=== PATIENT | female | born 1975 | race Native Hawaiian/Other Pacific Islander ===

== ENCOUNTER 2016-07-12 10:41 | Outpatient (CLI) | payer OTHER | END 2016-07-12 10:42 | disposition home or self-care (01) | DX: G47.33 Obstructive sleep apnea (adult) (pediatric) (principal) ==

== ENCOUNTER 2017-09-06 10:42 | Outpatient (CLI) | payer OTHER | END 2017-09-06 10:43 | disposition home or self-care (01) | LOC: SC 10:42 | PROVIDERS: ATTEND Nurse Practitioner Family | DX: G47.33 Obstructive sleep apnea (adult) (pediatric) (principal) | CPT/HCPCS: 99212; 99213 ==

== ENCOUNTER 2018-09-05 13:26 | Outpatient (CLI) | payer OTHER | END 2018-09-05 13:27 | disposition home or self-care (01) | LOC: SC 13:26 | PROVIDERS: ATTEND Nurse Practitioner Family | DX: G47.33 Obstructive sleep apnea (adult) (pediatric) (principal) | CPT/HCPCS: 99212; 99214 ==

== ENCOUNTER 2019-10-01 15:29 | Outpatient (CLI) | payer OTHER ==
--- NOTE | 2019-10-01 15:37 | SLEEP CARE CONSULTATION ---
Information from patient questionnaire entered by Britney Garcia. I have reviewed and concur with the information entered by Britney Garcia. This document represents the service I personally performed and the decisions made by me, Ranulfo Dugan MD, [facility]. History of Present Illness Service Date and Time: 10/01/2019 1529 Previous diagnosis: Severe, Obstructive Sleep Apnea-Hypopnea Syndrome AHI: 40 Reason for follow up: annual Equipment type: CPAP Equipment obtained from: [facility] additional information: To minimize the risk of COVID-19 exposure, the patient has requested and consented to this video telemedicine visit. The patient also agrees to having her insurance billed. HPI: Ms. Guo was called today to follow up on the nasal CPAP therapy. She was diagnosed to have severe obstructive sleep apnea-hypopnea syndrome. The patient wears with nasal pillows. [employer] is her durable medical supplier. She reports using the device nightly and all through the night. The compliance data show usage in 172 out of the past 180 nights, averaging 6.1 hours a night. The > 4 hour compliance rate for the past 180 days is 90%. She complained of no particular problem with the device such as soreness on the face, dry nose, epistaxis, nasal congestion or headache. She thinks that the pressure of 7 cmH2 O is comfortable. On the CPAP therapy she notices improvement in her sleep quality, and that she wakes up feeling fresher in the morning and more awake/alert during the day. The average residual AHI is 0.6; and average time in large leak per day is 18 seconds. CPAP Compliance Data - Data Reviewed with Patient Average duration of nightly device use: 6H 9M Compliance rate %: 90 Current pressure setting (cmH2O): 7 Humidity settin Heated hose settin Average residual AHI: 0.6 Average large leak: 18S Subjective Initial [place] Sleepiness Scale score: 13 Allergies and Home Medications Drug allergies reviewed: Yes Home medication list reviewed: Yes Review of Systems Review of systems same as previous: Yes Physical Exam Height: 5 ft 2 in Impression and Plan IMPRESSION: 1. Obstructive Sleep Apnea-Hypopnea Syndrome, severe (AHI was 40) with the patient doing well on nasal CPAP therapy. She has excellent compliance and significant clinical improvement. The current pressure appears effective and comfortable. Her nasal pillows fit well. Overall, she is very satisfied with treatment and plans to continue with it long-term. Because the CPAP is now older than the useful life of 5 years, I will order the patient a new one and make it an autoCPAP set between 5 and 8 cmH2O. PLAN: 1. Prescription made for an autoCPAP, heated humidifier, and related supplies. 2. Try to lose weight 3. Try other nasal pillows and nasal cushions. 4. Return for follow up after one month on the new machine. Visit Type: Telehealth Video Video Type: TURN8 Patient Location: Home Location of Provider: Home Patient agrees and consents to this telehealth visit type: Yes Time Spent with Patient (minutes): 15 Provider Statement: I spent 100% of the Telehealth Video Call with the patient with greater than 50% spent counseling the patient and coordination of care.
== END 2019-10-01 15:30 | disposition home or self-care (01) ==
LOC: SC 15:29
PROVIDERS: ATTEND Internal Medicine Pulmonary Disease
DX: G47.33 Obstructive sleep apnea (adult) (pediatric) (principal)

== ENCOUNTER 2019-12-18 11:09 | Outpatient (CLI) | payer OTHER ==
--- NOTE | 2019-12-18 11:04 | SLEEP CARE CONSULTATION ---
Information from patient questionnaire entered by Britney Garcia. I have reviewed and concur with the information entered by Britney Garcia. This document represents the service I personally performed and the decisions made by me, Tegan Sherwood, RN, MSN, [employer]. History of Present Illness Service Date and Time: 12/18/2019 1030 Previous diagnosis: Severe, Obstructive Sleep Apnea-Hypopnea Syndrome AHI: 40 Reason for follow up: first compliance after device update Equipment type: CPAP Equipment obtained from: [facility] (getting supplies as needed) Mask style: Nasal (Dreamwear) Backup mask available: Yes (old mask) Last cushion change: 2 weeks ago Prior sleep studies: Yes Year and Where: [facility] 2014 Type of Sleep Study: Polysomnography CPAP Compliance Data - Data Reviewed with Patient Average duration of nightly device use: 5h 29m Compliance rate %: 93 Current pressure setting (cmH2O): 5-8 Average residual AHI: 0.3 (7.9cmH20 95th ) Average large leak: zero Subjective Patient concerns: reports: nasal congestion (past but not currently). denies: aerophagia, mask discomfort, air blowing in eyes, mask leak noise, condensation in mask/hose, dry mouth, nose, throat, epistaxis Observed to snore while using device: No Current pressure setting perceived as: comfortable On therapy, patient: reports: sleeping better, awakening more refreshed, being m ore awake and alert during the day, more rested overall. denies: drowsiness while driving Initial [place] Sleepiness Scale score: 13 Allergies and Home Medications Known drug allergies: No Home medication list reviewed: No (no changes ) Review of Systems Review of systems same as previous: Yes Physical Exam Height: 5 ft 2 in Weight: 169 lb Weight change since last visit: lost 16 pounds Body Mass Index: 30.9 BMI Classification: Obese Impression and Plan 1. Obstructive Sleep Apnea-Hypopnea Syndrome, severe, with good treatment compliance and good apnea control. On CPAP therapy, the patient has better sleep quality and is more rested overall.Since she is averaging 5.5 hours, I discussed most people require 7-9 hours of sleep and less than 5-6 hours can increase health risks. Thus she is advised to strive a minimum 7 hours. Patient has lost weight. Currently patients BMI is 30.9 obesity class . Obesity increases the risk of apnea, CPAP pressure requirements and overall health risks especially cardiovascular and diabetes. Thus patient is advised to continue to lose weight. Weight loss can be done with reducing portion size, reducing refined foods and balancing content with vegetables, fruit and protein. In addition tracking food intake will allow awareness of how to modify diet to achieve weight loss goals. Also eating more slowly will allow more awareness of food intake and enjoyment of food while assisting patient to modify intake at each meal. A diet consultation can be helpful in achieving optimal weight loss goals. The BMI chart was reviewed. The patient would like to reduce to 20 pounds. Patient encouraged to discuss their weight loss goals with their PCP and consider a referral to a market research specialist. The patient's CPAP pressure range should accommodate some weight loss. Symptoms to report for additional pressure adjustment discussed.Patient's apnea severity and rationale for treatment to reduce apnea, improve sleep quality and reduce cardiovascular and cerebrovascular events was reviewed. I also reviewed the benefit of consistent device use of CPAP for hypertension. * Continue auto CPAP pressure at 5-8 cmH2O * Strive for more sleep * Notify me if snoring with mask or feeling that the pressure is too much or too little * Continue to lose weight * Call this office if any problems using CPAP * Return for follow up in 1 year , or sooner if concerns arise Visit Type: In Office Patient Location: Home Location of Provider: Office Patient agrees and consents to this telehealth visit type: Yes Patient agrees to have their insurance billed: Yes Time Spent with Patient (minutes): 15 Provider Statement: I spent 100% of the Face to Face Visit with the patient with greater than 50% spent counseling the patient and coordination of care.
== END 2019-12-18 11:10 | disposition home or self-care (01) ==
LOC: SC 11:09
PROVIDERS: ATTEND Nurse Practitioner Family
DX: G47.33 Obstructive sleep apnea (adult) (pediatric) (principal); E66.9 Obesity, unspecified; Z68.30 Body mass index [BMI] 30.0-30.9, adult

== ENCOUNTER 2020-01-15 08:32 | Outpatient (CLI) | payer OTHER ==
--- NOTE | 2020-01-16 09:23 | Mammography Report ---
BILATERAL DIGITAL SCREENING MAMMOGRAM 3D/2D: 01/15/2020 CLINICAL: Routine screening. Comparison is made to exams dated: 01/09/2017 mammogram, 12/19/2016 mammogram, 12/17/2015 mammogram, and 12/10/2014 mammogram - [facility]. The tissue of both breasts is heterogeneously dense . This may lower the sensitivity of mammography. There is a biopsy clip in the right breast. No significant masses, calcifications, or other findings are seen in either breast. There has been no significant interval change. IMPRESSION: NEGATIVE There is no mammographic evidence of malignancy. A 1 year screening mammogram is recommended. This exam was interpreted at Station ID: [id number]. NOTE: For mammograms, a report in lay terms will be sent to the patient. Approximately 15% of breast malignancies will not be visualized mammographically. In the management of a palpable breast mass, a negative mammogram must not discourage biopsy of a clinically suspicious lesion. Electronically Signed By: Miguel fairbanks/ga:01/15/2020 10:07:00 ACR BI-RADS Category 1: Negative 3341F PARENCHYMAL PATTERN: (D) - The breast(s) demonstrate(s) heterogeneously dense fibroglandular oxana velazquez. BI-RADS CATEGORY: (1) - 1 RECOMMENDATION: (ANNUAL) - Recommend routine annual screening mammography. 20210115 1 year screening LATERALITY: (B)
== END 2020-01-15 08:33 | disposition home or self-care (01) ==
LOC: DI 08:32
DX: Z12.31 Encounter for screening mammogram for malignant neoplasm of breast (principal)
CPT/HCPCS: 77063; 77067

== ENCOUNTER 2021-01-18 09:07 | Outpatient (CLI) | payer OTHER ==
--- NOTE | 2021-01-18 10:39 | SLEEP CARE CONSULTATION ---
Information from patient questionnaire entered by Vesna Luong. I have reviewed and concur with the information entered by Vesna Luong. This document represents the service I personally performed and the decisions made by me, Ranulfo Dugan MD, [facility]. History of Present Illness Service Date and Time: 01/18/2021 0907 Previous diagnosis: Severe, Obstructive Sleep Apnea-Hypopnea Syndrome AHI: 40 (in 2014) Reason for follow up: annual (Last seen 12/2019) Equipment type: CPAP Equipment obtained from: [facility] (getting supplies as needed) Mask style: Nasal Mask brand: Respironics (Dreamwear) Prior sleep studies: Yes Year and Where: 2014 - [facility] HPI additional information: HPI: Ms. Guo returns today to follow up on the nasal CPAP therapy. She was diagnosed to have severe obstructive sleep apnea-hypopnea syndrome. The patient wears with Respironics DreamWear nasal cushion mask. [employer] is her durable medical supplier. She reports using the device nightly and all through the night. The compliance data show usage in 178 out of the past 180 nights, averaging 5.6 hours a night. The > 4 hour compliance rate for the past 180 days is 90%. She complained of her ResMed AirSense 10 being too loud but no particular problem with the device such as soreness on the face, dry nose, epistaxis, nasal congestion or headache. She thinks that the pressure of 5 - 8 cmH2O is too high. On the CPAP therapy she notices improvement in her sleep quality, and that she wakes up feeling fresher in the morning and more awake/alert during the day. [place] Sleepiness Scale score is 2. The average residual AHI is 0.5; and average air leak is 1 L/minute. CPAP Compliance Data - Data Reviewed with Patient Average duration of nightly device use: 5 hr 34 min Compliance rate %: 90 (180 days) Current pressure setting (cmH2O): 5-8 Humidity settin Average residual AHI: 0.5 Subjective Current pressure setting perceived as: comfortable Initial [place] Sleepiness Scale score: 13 (in 2014) Current [place] Sleepiness Scale score: 2 Allergies and Home Medications Drug allergies reviewed: Yes Home medication list reviewed: Yes Review of Systems Review of systems same as previous: Yes Physical Exam Height: 5 ft 2 in Weight: 181 lb Weight change since last visit: -13 lb Body Mass Index: 33.0 BMI Classification: Obese Impression and Plan IMPRESSION: 1. Obstructive Sleep Apnea-Hypopnea Syndrome, severe (AHI was 40) with the patient doing well on nasal CPAP therapy. She continues to have excellent compliance and significant clinical improvement. The current pressure appears effective and but not comfortable. Her nasal cushion fit well. For her comfort, I will lower the pressure range to 4 - 6 cmH2O. The decrease in pressure requirement most likely is due to her weight loss. PLAN: 1. autoCPAP lowered to 4 6 via the modem. 2. Try to lose more weight 3. Prescription faxed to [facility] to replace or repair the device. 4. Return for follow up in a year or earlier if there is any problem. Counseling Topics: Weight control Follow up with Sleep Care in: 1 year Visit Type: In Office Time Spent with Patient (minutes): 15 Provider Statement: I spent 100% of the Face to Face Visit with the patient with greater than 50% spent counseling the patient and coordination of care.
== END 2021-01-18 09:08 | disposition home or self-care (01) ==
LOC: SC 09:07
PROVIDERS: ATTEND Internal Medicine Pulmonary Disease
DX: G47.33 Obstructive sleep apnea (adult) (pediatric) (principal); E66.9 Obesity, unspecified; Z68.33 Body mass index [BMI] 33.0-33.9, adult
CPT/HCPCS: 99212

== ENCOUNTER 2021-05-28 08:16 | Outpatient (CLI) | payer OTHER ==
--- NOTE | 2021-05-31 13:41 | Mammography Report ---
BILATERAL DIGITAL SCREENING MAMMOGRAM 3D/2D: 05/28/2021 CLINICAL: Routine screening. Comparison is made to exams dated: 01/15/2020 mammogram - [facility], 09/04/2017 ultr asound biopsy, 09/04/2017 mammogram, 08/02/2017 ultrasound, 08/02/2017 mammogram, and 02/06/2017 ultrasou nd - [facility]. The tissue of both breasts is heterogeneously dense. This may lower the sensitivity of mammography. There is a biopsy clip in the right breast. No significant masses, calcifications, or other findings are seen in either breast. There has been no significant interval change. IMPRESSION: NEGATIVE There is no mammographic evidence of malignancy. A 1 year screening mammogram is recommended. This exam was interpreted at Station ID: [id number]. NOTE: For mammograms, a report in lay terms will be sent to the patient. Approximately 15% of breast malignancies will not be visualized mammographically. In the management of a palpable breast mass, a negative mammogram must not discourage biopsy of a clinically suspicious lesion. Electronically Signed By: Jonas valdez/ga:05/28/2021 13:52:23 ACR BI-RADS Category 1: Negative 3341F PARENCHYMAL PATTERN: (D) - The breast(s) demonstrate(s) heterogeneously dense fibroglandular oxana velazquez. BI-RADS CATEGORY: (1) - 1 RECOMMENDATION: (ANNUAL) - Recommend routine annual screening mammography. 20220529 1 year screening LATERALITY: (B)
== END 2021-05-28 08:17 | disposition home or self-care (01) ==
LOC: DI 08:16
DX: Z12.31 Encounter for screening mammogram for malignant neoplasm of breast (principal)

== ENCOUNTER 2021-06-12 13:24 | Emergency (ER) | payer OTHER ==
[2021-06-12 14:01] VITALS: BP 154/104
[2021-06-12] MEDS ORDERED: IBUPROFEN 600 MG TABLET PO STA (14:05)
--- NOTE | 2021-06-12 14:09 | ED Physician Documentation ---
PD HPI LOWER EXT INJURY - Stated complaint Stated Complaint: LT LEG PX - Chief complaint Chief Complaint: Ext Problem - History obtained from History obtained from: Patient - Additional information Additional information: She hurt her leg without specific injury 2 weeks ago while kickboxing. She didn't notice it at the time but it hurt the next day. Now over the last 3 days it is much worse and sharp above and below the left knee. No other injuries. No history of DVT or PE. No possibility of . Review of Systems Constitutional: reports: Reviewed and negative Nose: reports: Reviewed and negative Cardiac: reports: Reviewed and negative Respiratory: reports: Reviewed and negative PD PAST MEDICAL HISTORY - Past Medical History Cardiovascular: Hypertension - Past Surgical History Past Surgical History: No - Present Medications Home Medications: Ambulatory Orders Medication Instructions Recorded Confirmed Cyclobenzaprine [Flexeril] 10 mg PO TID PRN #20 tablet 06/29/14 atenoloL [Atenolol] 06/29/14 06/29/14 - Allergies Allergies/Adverse Reactions: Allergies Allergy/AdvReac Type Severity Reaction Status Date / Time No Known Drug Allergies Allergy Verified 06/12/21 14:01 - Social History Does the pt smoke?: No Smoking Status: Never smoker Does the pt drink ETOH?: Yes Does the pt have substance abuse?: No PD ED PE NORMAL - Vitals Vital signs reviewed: Yes - General General: Alert and oriented X 3, No acute distress - Derm Derm: Normal color, Warm and dry - Extremities Extremities: Other (Diffuse tenderness about the left leg, doesn't seem to be specifically localized to the knee per se, it involves the calf and the thigh as well. No asymmetry or obvious swelling. No effusion of the knee.) - Neuro Neuro: Alert and oriented X 3, Normal speech Results - Vitals Vitals: Vital Signs - 24 hr 06/12/21 13:57 Temperature 36.8 C Heart Rate 96 Respiratory 16 Rate Blood Pressure 154/104 H O2 Saturation 100 Oxygen O2 Source Room air - Rads (name of study) R knee 4v is neg Radiology: EMP read contemporaneously PD MEDICAL DECISION MAKING - ED course ED course: 46-year-old woman with left leg pain posterior to the knee for the most part but also a bit the thigh and calf after kickboxing a few weeks ago and worse over the last 3 days found to have a Knox's cyst on duplex imaging without evidence of DVT and a small effusion on x-ray. Placed in a knee immobilizer. She declined prescription pain medications. Departure - Departure Disposition: 01 Home, Self Care Clinical Impression: Knox's cyst of knee, Pain of lower extremity Condition: Good Record reviewed to determine appropriate education?: Yes Instructions: ED Cyst Knox Comments: As discussed, it looks like you have a Knox's cyst in your left knee that is causing your pain. [place] discuss, and potentially refer for physical therapy and/or orthopedics if it is persistent. Return for new or worsening symptoms. Tylenol and/or ibuprofen as needed for pain. Forms: Activity restrictions
--- NOTE | 2021-06-12 15:56 | Ultrasound Report ---
PROCEDURE: Duplex Ext Veins Left INDICATIONS: leg pain TECHNIQUE: Real-time imaging, as well as color and pulse Doppler interrogation, were performed of the lower extr emity deep veins from the inguinal ligament to the popliteal fossa. COMPARISON: None. FINDINGS: The deep veins are normally compressible, and free of intraluminal thrombus. Color and pu lse Doppler demonstrate normal phasic intraluminal flow. There is normal augmentation response to di stal compression maneuver. A Knox's cyst is incidentally noted, measuring 7.2 x 1.9 x 4.1 cm. Likely slow flow can be seen within a potential collateral vein within the region of the peroneal vei ns. IMPRESSION: No findings of deep venous thrombosis are seen. Note: Concordant preliminary findings given by the bow making machine operator upon the completion of the examination to Dr. Gutierrez at 3:37 PM on 06/12/2021. Reviewed by: Hitesh Felix MD on 06/12/2021 2:55 PM [place] Approved by: Hitesh Felix MD on 06/12/2021 2:55 PM [facility] Station ID: [id number]
--- NOTE | 2021-06-12 15:57 | XRAY Report ---
PROCEDURE: Knee 4 View LT INDICATIONS: knee pain TECHNIQUE: 4 views of the left knee(s) were acquired. COMPARISON: None. FINDINGS: Bones: No fractures or dislocations. No suspicious bony lesions. Mild degenerative changes are see n, with minimal to mild medial and lateral femoral tibial joint space narrowing. Soft tissues: There is a small joint effusion. No suspicious soft tissue calcifications. IMPRESSION: Small joint effusion, with age-appropriate degenerative change. If there is strong clinical concern for internal derangement of this joint, please consider a dedicat ed MRI for further evaluation (assuming that there is no contraindication). Reviewed by: Hitesh Felix MD on 06/12/2021 2:56 PM [facility] Approved by: Hitesh Felix MD on 06/12/2021 2:56 PM [facility] Station ID: [id number]
== END 2021-06-12 16:18 | disposition home or self-care (01) ==
LOC: ED 13:24
DX: M71.22 Synovial cyst of popliteal space [Baker], left knee (principal)
CPT/HCPCS: 73564; 93971; 99282; 99284; A9270

== ENCOUNTER 2021-07-14 07:08 | Outpatient (CLI) | payer OTHER ==
--- NOTE | 2021-07-14 11:22 | MRI Report ---
PROCEDURE: Knee LT W/O INDICATIONS: SYNOVIAL CYST TECHNIQUE: Noncontrast sagittal PD fast spin echo and T2 fast spin echo with fat saturation, sagittal 3-D gradie nt sequence with fat saturation; coronal T1 spin echo and PD fast spin echo with fat saturation, and axial PD fast spin echo with fat saturation through the knee. COMPARISON: Left knee radiograph dated 06/12/2021. FINDINGS: Image quality: Excellent. Menisci: Medial meniscus is intact. There is complex tear involving anterior horn of lateral meniscus extending to superior and inferior articulating surfaces. The meniscal root ligaments appear intact. Cruciate ligaments: Thickened anterior cruciate ligament with intrasubstance T2 hyperintense signal i s seen suggestive of low-grade intrasubstance partial thickness tear. No full-thickness ACL rupture. PCL is intact. Medial structures: Low-grade proximal MCL sprain near its femoral insertion is seen. The posterior ob lique ligament, semimembranosus tendon insertions, and oblique popliteal ligament, and meniscocapsula r junction appear intact. Visualized portions of the pes anserinus tendons appear normal. No abnorm al bursal fluid. Lateral structures: The lateral collateral ligament, long and short heads of the biceps femoris tend on appear intact. The popliteus tendon appears normal; the popliteofibular ligament appears intact. The posterosuperior and anteroinferior popliteomeniscal fascicles appear intact. The arcuate and fa bellofibular ligaments appear intact, around the lateral inferior geniculate artery. Iliotibial band appears normal. Anterior structures: The quadriceps and patellar tendons appear intact. Patellar alignment is varun l. No femoral trochlear dysplasia or ventral trochlear prominence. No edema in the infrapatellar fa t pad. Bones and cartilage: Nonspecific intraosseous cyst formation involving anterior and medial portion of lateral tibial plateau near base of the tibial spine at ACL insertion is seen. Mild to moderate tric ompartmental osteoarthritis and chondromalacia most prominent in patellofemoral compartment is seen. Mild edema along posterior and lateral portion of patella with overlying low to moderate grade chondr omalacia suggestive of contusion versus small osteochondral injuries. No discrete fracture line is se en. Joint space: There is small amount of joint fluid. Prominent popliteal cyst is seen and measures up to 4.1 x 1.7 x 6.6 cm in size. Normal appearing synovial plicae are incidentally noted. IMPRESSION: 1. Mild to moderate tricompartmental osteoarthritis and chondromalacia most prominent in patellofemor al compartment as above. No fracture or dislocation. 2. Small amount of joint fluid, no gross loose bodies. Prominent popliteal cyst as above. 3. Complex tear involving anterior horn of lateral meniscus extending to both superior and inferior a rticulating surfaces. Medial meniscus is intact. 4. Suggestion of sprain/low-grade intrasubstance partial thickness tear involving anterior cruciate l igament. No full-thickness ACL rupture. PCL is intact. Very low-grade proximal MCL sprain. Reviewed by: Mark Stephen MD on 07/14/2021 11:21 AM PST Approved by: Mark Stephen MD on 07/14/2021 11:21 AM PST Station ID: [id number]
== END 2021-07-14 07:09 | disposition home or self-care (01) ==
LOC: DI 07:08
PROVIDERS: ATTEND Family Medicine
DX: M71.20 Synovial cyst of popliteal space [Baker], unspecified knee (principal); M17.12 Unilateral primary osteoarthritis, left knee; M22.42 Chondromalacia patellae, left knee; M25.462 Effusion, left knee; S83.272A Complex tear of lateral meniscus, current injury, left knee, initial encounter; S83.412A Sprain of medial collateral ligament of left knee, initial encounter

== ENCOUNTER 2023-02-09 14:41 | Emergency (ER) | payer OTHER ==
[2023-02-09 14:49] VITALS: O2SAT 99
[2023-02-09] MEDS ORDERED: KETOROLAC 30 MG/ML VIAL IM STA (16:08)
--- NOTE | 2023-02-09 16:10 | ED Physician Documentation ---
History of Present Illness - Stated complaint Stated Complaint: RT LEG PX - Chief complaint Chief Complaint: Ext Problem - Additonal information Additional information: 47-year-old female presents emergency department for evaluation of intermittent pain of the right lower quadrant. This episode began several days ago. Feels a sharp stabbing sensation that radiates up towards the thigh. Was seen a local walk-in clinic and started on methocarbamol. They did order an outpatient ultrasound but symptoms are worsening despite methocarbamol thus she presents here. No recent travel. No history of DVT or cancer. Taking metformin for di abetes. She has found some moderate relief with the use of ibuprofen. No falls or trauma. No swelling. Review of Systems Constitutional: denies: Fever, Chills Cardiac: reports: Reviewed and negative Respiratory: reports: Reviewed and negative GI: reports: Reviewed and negative : reports: Reviewed and negative Skin: denies: Rash, Lesions Musculoskeletal: reports: Extremity pain Neurologic: reports: Generalized weakness, Reviewed and negative PD PAST MEDICAL HISTORY - Past Medical History Past Medical History: Yes Cardiovascular: Hypertension - Past Surgical History Past Surgical History: No - Present Medications Home Medications: Ambulatory Orders Medication Instructions Recorded Confirmed Telmisartan 40 mg PO DAILY 02/09/23 02/09/23 gemfibroziL [Lopid] 600 mg PO DAILY 02/09/23 02/09/23 metFORMIN [Glucophage] 500 mg PO DAILY 02/09/23 02/09/23 - Allergies Allergies/Adverse Reactions: Allergies Allergy/AdvReac Type Severity Reaction Status Date / Time No Known Drug Allergies Allergy Verified 02/09/23 14:44 - Social History Does the pt smoke?: No Smoking Status: Never smoker Does the pt drink ETOH?: Yes Does the pt have substance abuse?: No PD ED PE NORMAL - General General: Alert and oriented X 3, No acute distress - Cardiac Cardiac: RRR - Respiratory Respiratory: No respiratory distress - Abdomen Abdomen: Normal bowel sounds, Soft, Non tender, Non distended - Back Back: No CVA TTP - Derm Derm: Normal color, Warm and dry, No rash - Extremities Extremities: No edema. No: No calf tenderness / cord (Tenderness with palpation of the posterior calf with pain radiating up the thigh. No swelling ecchymosis or erythema. Neurovascularly intact. 2+ DP pulse.) - Neuro Neuro: Alert and oriented X 3, detective 2-12 intact Eye Opening: Spontaneous Motor: Obeys Commands Verbal: Oriented GCS Score: 15 Results - Vitals Vitals: Vital Signs - 24 hr 02/09/23 14:45 Temperature 36.5 C Heart Rate 100 Respiratory 16 Rate Blood Pressure 160/90 H O2 Saturation 99 Oxygen O2 Source Room air - Labs Labs: Laboratory Tests 02/09/23 16:17 Sodium 132 L Potassium 4.0 Chloride 99 L Carbon Dioxide 24 Anion Gap 9.0 BUN 14 Creatinine 0.6 Estimated GFR (MDRD) 106 Glucose 194 H Calcium 11.2 H - Rads (name of study) right leg US Relevant Findings:: Final report received (Negative for DVT) PD Medical Decision Making - ED course Complexity details: d/w patient, d/w family ED course: 47-year-old female here for intermittent right lower leg pain. Has waxed and waned for several months but never fully improved. Seen at local walk-in clinic recently started on methocarbamol. Had been referred for outpatient ultrasound but as symptoms did not improve she presents here today. On exam extremity is warm with good pulses. No swelling or erythema no symptomatology of infection. Ultrasound was completed at the bedside it did not show any findings of DVT. Given the patient's history of diabetes as well as some minor back pain I suspect that this may be referred pain or early sciatica though she is denying lower lumbar pain at this time. Recommending she continue the methocarbamol and alternate doses of Tylenol and Motrin. Will follow with PCP. May benefit from referral to physical therapy. The usual emergent return precautions worsening symptoms was discussed. Departure - Departure Disposition: 01 Home, Self Care Clinical Impression: Right leg pain Condition: Stable Comments: As discussed at the bedside the ultrasound of your leg did not show any blood clot. We discussed the possibility that you could be having some nerve pain originating from your lower back. You can continue to take the methocarbamol. I would recommend that you alternate doses of Tylenol and ibuprofen [id number] for the neck several days to see if that helps with the pain. Consider follow-up with your primary doctor. You may benefit from referral to physical therapy for referred nerve pain. Return to the ER if you develop any fevers, have leg swelling, redness or any concerns of infection. Forms: PCP List
[2023-02-09 16:49] LABS: CALCIUM 11.2 mg/dL (8.5-10.3); CREATININE 0.6 mg/dL (0.6-1.3)
[2023-02-09 18:39] VITALS: BP 150/87
--- NOTE | 2023-02-09 18:44 | Ultrasound Report ---
PROCEDURE: Duplex Ext Veins Right INDICATIONS: pain TECHNIQUE: Real-time imaging, as well as color and pulse Doppler interrogation, were performed of the lower extr emity deep veins from the inguinal ligament to the popliteal fossa. Attempted visualization of the ca lf veins was performed. COMPARISON: None. FINDINGS: The deep veins are normally compressible, and free of intraluminal thrombus. Color and pu lse Doppler demonstrate normal phasic intraluminal flow. There is normal augmentation response to di stal compression maneuver. IMPRESSION: No deep venous thrombosis of the visualized lower extremity. Reviewed by: Willie Arrieta MD on 02/09/2023 5:43 PM [facility] Approved by: Willie Arrieta MD on 02/09/2023 5:43 PM [place] Station ID: [id number]
== END 2023-02-09 18:38 | disposition home or self-care (01) ==
LOC: ED 14:41
DX: M79.604 Pain in right leg (principal); I10 Essential (primary) hypertension
CPT/HCPCS: 36415; 80048; 96372; 99283; 99284